=== PATIENT | female | born 1965 | race Caucasian/White ===

== ENCOUNTER 2019-05-15 15:16 | Emergency (ER) | payer BC ==
[~2019-05-15] VITALS: Ht 160 cm; Wt 58.1 kg
[2019-05-15] MEDS ORDERED: CITALOPRAM HBR40 MG PO (15:25)
[2019-05-15 17:40] LABS: URINE BILIRUBIN NEGATIVE (Negative); URINE BLOOD TRACE (Negative); URINE CLARITY CLEAR; URINE COLOR YELLOW; URINE GLUCOSE-RANDOM* NEGATIVE (Negative); URINE KETONES NEGATIVE (Negative); URINE LEUKOCYTES-REFLEX NEGATIVE (Negative); URINE NITRITE-REFLEX NEGATIVE (Negative); URINE PROTEIN (DIPSTICK) NEGATIVE (Negative); URINE SPECIFIC GRAVITY <= 1.005 (1.005-1.035); URINE UROBILINOGEN 0.2 E.U./dl (0.2-1.0)
[2019-05-15 17:50] LABS: ABSOLUTE NEUTROPHILS 4.8 thou/uL (1.4-8.2); BASOPHILS 0.7 % (0.0-2.0); EOSINOPHILS 2.5 % (0.0-3.0); HEMATOCRIT 39.9 % (37.0-47.0); HEMOGLOBIN 13.3 gm/dL (12.0-15.0); LYMPHOCYTES 18.7 % (24.0-44.0); MCH 30.9 pg (26.0-34.0); MCHC 33.3 g/dL (28.0-37.0); MCV 92.9 fL (80.0-100.0); MONOCYTES 8.8 % (1.0-8.0); PLATELET COUNT 199 thou/uL (150-400); POLYS 69.3 % (36.0-66.0); RBC 4.29 mil/uL (4.20-5.00); RDW 12.5 % (10.5-14.5); WBC 6.9 thou/uL (4.0-11.0)
[2019-05-15 18:02] LABS: ANION GAP 8 mmol/L (7-16); BUN 17 mg/dL (7-18); CALCIUM 9.5 mg/dL (8.5-10.1); CHLORIDE 104 mmol/L (98-107); CO2 28 mmol/L (21-32); CREATININE 0.8 mg/dL (0.6-1.0); GLUCOSE 82 mg/dL (74-106); SODIUM 140 mmol/L (136-145)
[2019-05-15 18:11] LABS: TROPONIN-I <0.06 ng/mL (<0.06)
[2019-05-15 18:21] LABS: ALBUMIN 4.3 g/dL (3.4-5.0); DIRECT BILIRUBIN 0.1 mg/dL (<0.1-0.3); TOTAL BILIRUBIN 0.3 mg/dL (<0.1-1.0); TOTAL PROTEIN 7.3 g/dL (6.4-8.2)
[2019-05-15] MEDS ORDERED: TRAMADOL 50 MG50 MG PO (19:19)
[2019-05-15 19:44] VITALS: BP 135/91
--- NOTE | 2019-05-16 08:13 | EKG ---
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
== END 2019-05-15 19:44 | disposition home or self-care (01) ==
LOC: ER 15:16
PROVIDERS: Emergency Medicine
DX: S20.212A Contusion of left front wall of thorax, initial encounter (principal); R42 Dizziness and giddiness; R10.10 Upper abdominal pain, unspecified; G43.909 Migraine, unspecified, not intractable, without status migrainosus; Z85.828 Personal history of other malignant neoplasm of skin; Z90.710 Acquired absence of both cervix and uterus; W11.XXXA Fall on and from ladder, initial encounter; Y92.89 Other specified places as the place of occurrence of the external cause; Y93.89 Activity, other specified; Y99.8 Other external cause status

== ENCOUNTER → 2021-08-12 | Outpatient (CLI) | payer OTHER ==
[~2021-08-12] MED LIST: CITALOPRAM HBR40 MG PO; TRAMADOL 50 MG50 MG PO
== END ==
LOC: CAT 07:49
PROVIDERS: ATTEND Nurse Practitioner
DX: Z13.6 Encounter for screening for cardiovascular disorders (principal); I25.10 Atherosclerotic heart disease of native coronary artery without angina pectoris; E78.00 Pure hypercholesterolemia, unspecified